=== PATIENT | male | born 1965 | race Caucasian/White ===

== ENCOUNTER 2020-01-14 10:46 | Inpatient (IN) | payer OTHER ==
[~2020-01-14] VITALS: Ht 180.3 cm; Wt 124.7 kg
[2020-01-14] VITALS (10 sets, daily range): BP systolic 118–141; BP diastolic 71–82
[2020-01-14] MEDS ORDERED: LIPITOR 20 MG T20 M1 PO (10:56)
[2020-01-14] MEDS ORDERED: TOPROL XL50 MG PO (10:56)
[2020-01-14 11:14] LABS: ABSOLUTE NEUTROPHILS 5.5 thou/uL (1.4-8.2); BASOPHILS 0.7 % (0.0-2.0); HEMOGLOBIN 16.1 gm/dL (14.0-18.0); LYMPHOCYTES 26.1 % (24.0-44.0); MCH 30.5 pg (26.0-34.0); MCHC 33.5 g/dL (28.0-37.0); MCV 91.1 fL (80.0-100.0); PLATELET COUNT 245 thou/uL (150-400); POLYS 61.2 % (36.0-66.0); RBC 5.27 mil/uL (4.50-6.00); RDW 13.7 % (10.5-14.5); WBC 8.9 thou/uL (4.0-11.0)
[2020-01-14 11:17] LABS: ANION GAP 13 mmol/L (7-16); BUN 18 mg/dL (7-18); CALCIUM 9.2 mg/dL (8.5-10.1); CHLORIDE 102 mmol/L (98-107); CO2 22 mmol/L (21-32); CREATININE 1.3 mg/dL (0.7-1.3); GLUCOSE 107 mg/dL (74-106); SODIUM 137 mmol/L (136-145)
[2020-01-14 11:27] LABS: ALBUMIN 4.3 g/dL (3.4-5.0); DIRECT BILIRUBIN 0.4 mg/dL (<0.1-0.2); SGOT 26 U/L (15-37); SGPT 33 U/L (30-65); TOTAL BILIRUBIN 0.8 mg/dL (<0.1-1.0); TOTAL PROTEIN 7.5 g/dL (6.4-8.2); TROPONIN-I <0.06 ng/mL (<0.06)
[2020-01-14] MEDS ORDERED: ASA81BEC PO (11:29)
[2020-01-14] MEDS ORDERED: NITROSTAT0.3 MG SUBLING (11:31)
--- NOTE | 2020-01-14 14:43 | NUR ---
ATTEMPTED TO CALL REPORT TO CCU WHO ASKS TO CALL BACK. PT BEING TAKEN TO [facility] AT THIS TIME.
[2020-01-14] MEDS ORDERED: ISOSORBIDE MONO30 M1 PO (20:01)
--- NOTE | 2020-01-14 20:09 | NUR ---
ASSUMMED PT CARE AT APPROXIMATELY 1645. PT A&O X4. ASSESSMENT CHARTED. FALL PRECAUTIONS IN PLACE. PT DENIES HAVING CHEST PAIN. PT DENIES HAVING SOB. PT DENIES HAVING ACUTE PAIN. PT POST CATH. NON INTERVENTIONAL. R GROIN C/D/I. NO HEMATOMA. BEDREST COMPLETE. PT AMBULATES STEADY/INDEPENDENT TO BATHROOM. VITAL SIGNS STABLE. POST-PROCEDURE VITAL SIGNS IN PLACE. ADMISSION COMPLETE. PT COMFORTABLE IN BED. PT DENIES HAVING FURTHER CONCERNS. UPDATED PT'S HOME MEDS.
[2020-01-15 00:45] VITALS: BP 127/82
[2020-01-15 04:45] VITALS: BP 105/64
[2020-01-15 04:57] LABS: ABSOLUTE NEUTROPHILS 8.4 thou/uL (1.4-8.2); BASOPHILS 0.4 % (0.0-2.0); EOSINOPHILS 1.2 % (0.0-3.0); HEMATOCRIT 40.7 % (42.0-52.0); LYMPHOCYTES 16.4 % (24.0-44.0); MCH 30.3 pg (26.0-34.0); MCHC 33.3 g/dL (28.0-37.0); MCV 91.1 fL (80.0-100.0); MONOCYTES 7.1 % (1.0-8.0); PLATELET COUNT 203 thou/uL (150-400); POLYS 74.9 % (36.0-66.0); RBC 4.47 mil/uL (4.50-6.00); RDW 13.5 % (10.5-14.5); WBC 11.1 thou/uL (4.0-11.0)
--- NOTE | 2020-01-15 05:28 | NUR ---
ASSUMED PT CARE AT 1900. PT IS ALERT AND ORIENTED. NO SIGN OF DISTRESS NOTED IN PT. PT VERBALIZES A HEADACHE. RIGHT GROIN SITE INTACT. NO SIGN OF BLEEDING OR HEMATOMA NOTED. ASSESSMENT COMPLETED AND DOCUMENTED. SCHEDULED MEDS ADMINISTERED TO PT. CONTINUE TO MONITOR PT. NO FURTHER NEEDS AT THIS TIME.
[2020-01-15 06:01] LABS: HEMOGLOBIN 13.6 gm/dL (14.0-18.0)
[2020-01-15 06:04] LABS: ANION GAP 8 mmol/L (7-16); BUN 17 mg/dL (7-18); CALCIUM 8.4 mg/dL (8.5-10.1); CHLORIDE 103 mmol/L (98-107); CHOLESTEROL 106 mg/dL (<200); CO2 25 mmol/L (21-32); CREATININE 1.1 mg/dL (0.7-1.3); GLUCOSE 90 mg/dL (74-106); HDL CHOLESTEROL 29 mg/dL (>40); LDL CHOLESTEROL 62 mg/dL (<100); MAGNESIUM 2.1 mg/dL (1.8-2.4); POTASSIUM 4.1 mmol/L (3.5-5.1); SODIUM 136 mmol/L (136-145); TC:HDL 3.7 Ratio (Not establshd); TRIGLYCERIDE 77 mg/dL (<150); VLDL 15 mg/dL (<40)
[2020-01-15 06:16] LABS: SERUM ASSESSMENT Clear
[2020-01-15 07:20] VITALS: BP 145/73
--- NOTE | 2020-01-15 07:58 | EKG ---
[facility] [place] [address] ELECTROCARDIOGRAM REPORT Name: KHRIS MARTINEZ Room #: 212-P ADM IN M.R.#: [id number] Admission: 01/14/20 Attend Phys: Vel Danielle MD Discharge: Date of : 69 Report #: [id number] THIS REPORT FOR: cc: Jerzy Sanchez MD, John L. MD Lundgren,Virgilio Ritchie MD [facility] ~ THIS REPORT FOR: //name// [facility] ED Test Date: 2020-01-14 Test Time: 10:45:14 Pat Name: KHRIS MARTINEZ Department: Room: [facility] Gender: M [place]: [place] : 1965 Requested By: Xuan Franco Order Number: [id number] MD: Virgilio Harmon Measurements Intervals [place] Rate: 59 P: 32 TN: 162 QRS: 2 QRSD: 105 T: 41 QT: 418 QTc: 414 Interpretive Statements Sinus bradycardia Normal tracing No previous ECG available for comparison Electronically Signed On 01-15-2020 7:56:54 CDT by Virgilio Harmon [email or web address] <ELECTRONICALLY SIGNED> By: Virgilio Harmon MD, FAC 01/15/20 0756 1045 Virgilio Harmon MD, [facility] /EPI
[2020-01-15] MEDS ORDERED: IMDUR 60 MG TAB60 M1 PO (08:10)
[2020-01-15 08:29] VITALS: BP 145/73
[2020-01-15 09:57] VITALS: BP 145/73
--- NOTE | 2020-01-15 10:50 | NUR ---
07:30 PT. AWAKE AND ASKING WHEN HE WILL BE GOING HOME TODAY. DENIES ANY CHEST PAIN, NO NAUSEA, ONLY ISSUE IS A SLIGHT HEADACHE AT THIS TIME, WILL GET TYLENO FOR SUCH. RIGHT GROIN SITE IS C,D,I, NO OOZING AT ALL WITH TRANSPARENT DRESSING AND GUAZE AT SITE. PEDAL PULSES ARE 2+ BILATERALLY, LOWER EXTREMETIES ARE WARM TO TOUCH AND CAPILAARY REFILL ON TOES WNL. PT. DOES VERBALIZE HIS DISCHARG EPLAN FOR TODAY AND ALL MEDICATION CHANGES. IV FLUSHES, NO SIGN'S OF INFILTRATION.
--- NOTE | 2020-01-15 11:00 | NUR ---
IV REMOVED, WHEELCAHIR TO ROOM. LEADS REMOVED AND PT. SIGNED ALL DISCHARGE PAPERWORK AT THIS TIME. 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
== END 2020-01-15 11:10 | disposition home or self-care (01) | DRG 303 ==
LOC: ER 10:46 → 2N 12:37 → EROBS 12:37 → 2N 14:42 → TBACV 14:55 → 2N 16:39
PROVIDERS: Emergency Medicine; Nurse Practitioner; ADMIT Hospitalist
DX: I25.110 Atherosclerotic heart disease of native coronary artery with unstable angina pectoris (principal); I10 Essential (primary) hypertension; E78.5 Hyperlipidemia, unspecified; E66.9 Obesity, unspecified; Z95.5 Presence of coronary angioplasty implant and graft; Z82.49 Family history of ischemic heart disease and other diseases of the circulatory system; Z68.38 Body mass index [BMI] 38.0-38.9, adult; Z79.899 Other long term (current) drug therapy
CPT/HCPCS: 10081